=== PATIENT | female | born 2000 | race Caucasian/White ===

== ENCOUNTER 2020-03-17 15:36 | Emergency (ER) | payer OTHER ==
[2020-03-17 15:42] VITALS: BMI 30.9
[2020-03-17] MEDS ORDERED: MAG HYDROX/AL HYDROX/SIMETH 30 ML UNIT-DOSE CUP PO ONE (15:42)
[2020-03-17] MEDS ORDERED: LIDOCAINE VISCOUS 2% ORAL/TOP 20 ML UNIT-DOSE CUP MM ONE (15:42)
[2020-03-17] MEDS ORDERED: ONDANSETRON *ODT* 4 MG TABLET SL ONE (15:42)
--- NOTE | 2020-03-17 15:42 | PDOC ---
Rapid Medical Evaluation Time Seen by Provider: 03/17/20 15:38 Medical Evaluation: 03/17/20 15:39 CC: upper abd pain since last night and felt hot last night, no /v/d/urinary complaints, mild nausea this week, normal menses, hx of the same but never followed it up, states burning to chest intermittently , worse at night Exam: epigastric tenderness, vss, no cva tenderness Plan: maalox, pepcid Discharge Disposition - Diagnosis Epigastric pain - Referrals - Patient Instructions - Post Discharge Activity
[2020-03-17] MEDS ORDERED: FAMOTIDINE 20 MG TABLET PO ONE (15:43)
--- NOTE | 2020-03-17 16:21 | PDOC ---
History of Present Illness - General Chief Complaint: Pain Stated Complaint: ABD PAIN/ NAUSEOUS Time Seen by Provider: 03/17/20 15:38 History Source: Patient Exam Limitations: No Limitations - History of Present Illness Initial Comments: 03/17/20 16:15 Patient is a 19-year-old female with a history of PCOS who presents to the ED with complaint of epigastric abdominal pain that she has had for the last 1 year. She states that the last several days has been much worse. She denies any fevers or chills. She does admit to nausea without vomiting. She does admit to stools that appear to float in the water. She has not been seen for this problem in the past. The patient states that she did not see anyone for this problem because she does not have a primary doctor. Past History - Medical History Allergies/Adverse Reactions: Allergies Allergy/AdvReac Type Severity Reaction Status Date / Time No Known Allergies Allergy Verified 03/17/20 15:39 Home Medications: Ambulatory Orders Omeprazole 20 mg PO DAILY 30 Days #30 tablet. 03/17/20 - Psycho-Social/Smoking History Smoking History: Never smoked Information on smoking cessation initiated: No - Substance Abuse Hx (Audit-C & DAST Scrn) How often the patient has a drink containing alcohol: Never Score: In Men: 4 or > Positive; In Women: 3 or > Positive: 0 Screen Result (Pos requires Nsg. Audit-10AR): Negative In the last yr the pt used illegal drug/Rx for NonMed reason: No Score: Yes response is considered Positive: 0 Screen Result (Positive result requires Nsg. DAST-10): Negative Review of Systems - Review of Systems Comments:: 03/17/20 16:21 - Review of Systems Able to Perform ROS?: Yes Constitutional: No: Fever, Chills, Loss of Appetite, Night Sweats, Weakness HEENTM: No: Eye Pain, Vision changes, Ear Pain, Throat Pain, Throat Swelling, Mouth Pain, Difficulty Swallowing Respiratory: No: Cough, Shortness of Breath, Wheezing, Sputum Production Cardiac (ROS): No: Chest Pain, Chest Tightness, Palpitations, Irregular Heart Beat, Edema ABD/GI: No: Vomiting, Diarrhea; positive: Epigastric abdominal pain, nausea : No Dysuria, No Hematuria, No Frequency, No Urgency, No Vaginal Discharge/Pain Musculoskeletal: No: Muscle Pain, Back Pain, Joint Pain, Muscle Weakness, Neck Pain Integumentary: No: Lesions, Rash Neurological: No: Headache, Numbness, Tingling, Weakness, Speech Difficulties *Physical Exam - Vital Signs Last Vital Signs Temp Pulse Resp BP Pulse Ox 97 F L 96 H 16 144/97 100 03/17/20 15:39 03/17/20 15:39 03/17/20 15:39 03/17/20 15:39 03/17/20 15:39 - Physical Exam 03/17/20 16:21 - Physical Exam General Appearance: Nourished, Appropriately Dressed, No Distress HEENT: EOMI, Normal Voice, Hearing Grossly Normal Neck: Supple, No Lymphadenopathy (R), No Lymphadenopathy (L), No Rigidity, No Decreased range of motion Respiratory/Chest: Lungs Clear, Normal Breath Sounds. No Respiratory Distress, No Accessory Muscle Use Cardiovascular: Regular Rhythm, Regular Rate, S1, S2 Gastrointestinal/Abdominal: Normal Bowel Sounds, Soft. No Guarding, No Rebound, No Rigidity; epigastric abdominal tenderness to palpation. No right upper q uadrant tenderness to palpation. Negative Giron sign. No CVA tenderness bilaterally. Musculoskeletal: Normal Inspection. No Decreased Range of Motion Extremity: Normal Capillary Refill, Normal Inspection Integumentary: Normal Color, Dry. No Rash Neurologic: internal medicine nurse practitioner II-XII NML intact, Fully Oriented, Alert, Normal Mood/Affect, Normal Response ED Treatment Course - LABORATORY CBC & Chemistry Diagram: 03/17/20 16:22 03/17/20 16:22 Medical Decision Making - Medical Decision Making 03/17/20 16:22 Assessment: Patient is a 19-year-old female with epigastric abdominal pain for 1 year but worse over the last several days. Plan: -Medications ordered by triage and pending -CBC, CMP ordered -Will reassess 03/17/20 17:51 Patient is feeling much better after the medication. She has little epigastric tenderness to palpation. She does state that she is belching a lot more now. The patient will be discharged on Prilosec and given referral to GI for further evaluation and treatment. She understands and agrees with this treatment plan and she is stable for discharge. Discharge - Discharge Information Problems reviewed: Yes Clinical Impression/Diagnosis: Epigastric pain Condition: Stable Disposition: HOME - Additional Discharge Information Prescriptions: Omeprazole 20 mg PO DAILY 30 Days #30 tablet. - Follow up/Referral Referrals: Max Stokes DO [Staff Physician] - 1 week [facility] [place] [Provider Group] - 3 days - Patient Discharge Instructions Patient Printed Discharge Instructions: DI for Epigastric Pain, GERD Diet Additional Instructions: Eat a bland diet and avoid foods that are spicy, acidic, greasy, caffeinated, foods to help your stomach settle. Take the pills as prescribed and be sure to follow-up with the GI doctor. You have been referred to GI. You have also been referred to a primary care doctor. Be sure to wait roughly 2 hours before laying down if you eat something. Laying down immediately after eating can cause you to have worsening symptoms. - Post Discharge Activity
[2020-03-17 16:32] LABS: BASO % 0.6 % (0-2.0); EOS % 0.4 % (0-4.5); HEMATOCRIT 39.8 % (32.4-45.2); HEMOGLOBIN 13.4 GM/dL (10.7-15.3); LYMPH % 18.6 % (8-40); MCH 30.3 pg (25.7-33.7); MCHC 33.7 g/dl (32.0-36.0); MEAN CELL VOLUME 89.9 fl (80-96); MEAN PLT VOLUME 8.5 fl (7.5-11.1); MONO % 6.3 % (3.8-10.2); NEUT % 74.1 % (42.8-82.8); PLATELET COUNT 252 K/MM3 (134-434); RBC 4.43 M/mm3 (3.60-5.2); RDW 14.1 % (11.6-15.6); WHITE BLOOD COUNT 11.7 K/mm3 (4.0-10.0)
[2020-03-17] MEDS ORDERED: ONDANSETRON *ODT* 4 MG TABLET ONE (16:38)
[2020-03-17] MEDS ORDERED: FAMOTIDINE 20 MG TABLET ONE (16:38)
[2020-03-17] MEDS ORDERED: LIDOCAINE VISCOUS 2% ORAL/TOP 20 ML UNIT-DOSE CUP ONE (16:38)
[2020-03-17] MEDS ORDERED: MAG HYDROX/AL HYDROX/SIMETH 30 ML UNIT-DOSE CUP ONE (16:39)
[2020-03-17 16:56] LABS: ALBUMIN 4.1 g/dl (3.4-5.0); BILIRUBIN,TOTAL 0.6 mg/dL (0.2-1); BLOOD UREA NITROGEN 8.7 mg/dL (7-18); CALCIUM 9.5 mg/dL (8.5-10.1); CREATININE 0.7 mg/dL (0.55-1.3); POTASSIUM 3.9 mmol/L (3.5-5.1); TOT PROT 7.6 g/dl (6.4-8.2)
[2020-03-17 17:45] LABS: URINE APPEARANCE CLEAR; URINE BILIRUBIN NEGATIVE (NEGATIVE); URINE COLOR YELLOW; URINE GLUCOSE (UA) NEGATIVE (NEGATIVE); URINE KETONE TRACE (NEGATIVE); URINE LEUK ESTERASE NEGATIVE (NEGATIVE); URINE NITRITE NEGATIVE (NEGATIVE); URINE PROTEIN NEGATIVE (NEGATIVE)
[2020-03-17 17:48] LABS: HCG,QUALITATIVE URINE Negative
[2020-03-17 18:02] VITALS: BP 126/83; PULSE 71; TEMP 97.4
== END 2020-03-17 18:22 | disposition home or self-care (01) ==
LOC: JER 15:36
DX: R10.13 Epigastric pain (principal)
CPT/HCPCS: 36415; 80053; 81003; 84703; 85025; 87077; 87086; 99283-25; Q0162